=== PATIENT | male | born 1945 | race Two or more races ===

== ENCOUNTER 2024-04-19 15:21 | Inpatient (IN) | payer MEDICARE, OTHER ==
[~2024-04-19] VITALS: Ht 175.3 cm; Wt 60.4 kg
[2024-04-19] MEDS: IV NORMAL SALINE 1000 ML BAG IV ONE (15:43)
[2024-04-19] MEDS ORDERED: CEFTRIAXONE /D5W 50ML IVPB **ER PYXIS IV ONE (15:45)
[2024-04-19 15:48] LABS: BASOPHILS # (AUTO) 0.1 K/UL (0.0-0.2); BASOPHILS % (AUTO) 0.4 % (0.0-2.0); HEMATOCRIT 24.7 % (36.7-47.1); LYMPHOCYTES # (AUTO) 0.6 K/uL (0.8-4.8); LYMPHOCYTES % (AUTO) 2.5 % (20.5-51.5); MEAN CORPUSCULAR HEMOGLOBIN 35.9 uug (23.8-33.4); MEAN CORPUSCULAR HGB CONC 33 g/dL (32.5-36.3); MEAN CORPUSCULAR VOLUME 110.2 fL (73.0-96.2); MONOCYTES # (AUTO) 1.1 K/uL (0.1-1.30); MONOCYTES % (AUTO) 4.4 % (0.0-11.0); NEUTROPHILS # (AUTO) 23.7 K/uL (1.8-8.9); NEUTROPHILS % (AUTO) 92.7 % (38.5-71.5); PLATELET COUNT (AUTO) 733 K/uL (152-348); RED CELL DISTRIBUTION WIDTH 15.9 % (12.1-16.2); WHITE BLOOD COUNT (AUTO) 25.6 K/uL (3.6-10.2)
[2024-04-19 15:52] LABS: DIFFERENTIAL COMMENT 1; RED BLOOD CELL COUNT(AUTO) 2.24 MIL/uL (4.06-5.63)
[2024-04-19] MEDS: CEFTRIAXONE 1 G in IV DEXTROSE 5% 50 ML IV ONE (16:04)
[2024-04-19 16:10] LABS: ALANINE AMINOTRANSFERASE 21 U/L (16-63); ALKALINE PHOSPHATASE 89 U/L (50-136); ASPARTATE AMINOTRANSFERASE 17 U/L (15-37); BILIRUBIN,DIRECT 0.2 mg/dL (0.0-0.2); BILIRUBIN,TOTAL 0.5 mg/dL (0.2-1.0); CALCIUM 8.7 mg/dL (8.5-10.1); CARBON DIOXIDE 34 mmol/L (21-32); CHLORIDE 110 mmol/L (98-107); CREATININE 1.2 mg/dL (0.6-1.3); NT-PRO BNP 1484 pg/mL (0-125); POTASSIUM 3.5 mmol/L (3.5-5.1); SODIUM SERUM 155 mmol/L (136-145); TOTAL PROTEIN, SERUM 6.9 g/dL (6.4-8.2); UREA NITROGEN, BLOOD 49 mg/dL (7-18)
[2024-04-19] MEDS ORDERED: AMLO-212 GT (16:11)
[2024-04-19 16:12] LABS: GLUCOSE 447 mg/dL (74-106)
[2024-04-19 16:13] LABS: LACTIC ACID 4.3 mmol/L (0.4-2.0)
[2024-04-19] MEDS ORDERED: GABA250S2 GT (16:18)
[2024-04-19] MEDS ORDERED: [UNRECOGNIZED DRUG - CODE] GT (16:18)
[2024-04-19] MEDS ORDERED: ACET160E36 GT (16:18)
[2024-04-19] MEDS ORDERED: ACET160S2 GT (16:21)
[2024-04-19] MEDS ORDERED: BISA10SU95 RC (16:21)
[2024-04-19] MEDS ORDERED: CRAN425C5 GT (16:21)
[2024-04-19] MEDS ORDERED: DOCU50LI GT (16:24)
[2024-04-19] MEDS ORDERED: FERR300L GT (16:24)
[2024-04-19] MEDS ORDERED: FERR325T24 GT (16:24)
[2024-04-19] MEDS ORDERED: GLUC1VIA15 IM (16:27)
[2024-04-19] MEDS ORDERED: FOLI1TAB94 GT (16:27)
[2024-04-19] MEDS ORDERED: OMEG1600 GT (16:27)
[2024-04-19] MEDS ORDERED: HYDR-894 GT (16:29)
[2024-04-19] MEDS ORDERED: HYDR500C GT ×2 (16:29)
[2024-04-19] MEDS ORDERED: IPRA3AMP23 NEB (16:32)
[2024-04-19] MEDS ORDERED: INSU100I19 SUBCUT (16:32)
[2024-04-19] MEDS ORDERED: LEVE100S GT (16:32)
[2024-04-19] MEDS ORDERED: MULT-619 GT (16:35)
[2024-04-19] MEDS ORDERED: METO25TA6 GT (16:35)
[2024-04-19] MEDS ORDERED: AMIN30LI45 GT (16:35)
[2024-04-19] MEDS ORDERED: ACET-2154 GT (16:39)
[2024-04-19] MEDS ORDERED: INSU100C4 SUBCUT (16:39)
[2024-04-19] MEDS ORDERED: POLY17PO4 GT (16:39)
[2024-04-19] MEDS ORDERED: ZINC50TA2 GT (16:40)
[2024-04-19] MEDS ORDERED: CHOL100062 GT (16:40)
[2024-04-19] MEDS ORDERED: ASCO500P18 GT (16:40)
[2024-04-19 17:08] LABS: *BILIRUBIN,URIN NEGATIVE (NEGATIVE); *BLOOD, URINE 2+ (NEGATIVE); *CLARITY,URINE CLEAR (CLEAR); *COLOR,URINE YELLOW (YELLOW); *KETONES,URINE 1+ (NEGATIVE); *PROTEIN,URINE 2+ (NEGATIVE); LEUKOCYTE ESTERASE ,URINE NEGATIVE (NEGATIVE); NITRITE, URINE NEGATIVE (NEGATIVE); PH,URINE 5.5 (5.0-8.0); UGLUCOSE 2+ (NEGATIVE)
[2024-04-19] MEDS: IV D5W 1000ML 1,000 ML IV ONE (17:19)
[2024-04-19] MEDS ORDERED: INSULIN REGULAR, HUMAN 1000 UNIT/10 ML VIAL ONE (17:37)
[2024-04-19] MEDS: INSULIN REGULAR, HUMAN 1000 UNIT/10 ML VIAL SQ ONE ×2 (17:40→20:54)
[2024-04-19 18:07] LABS: BACTERIA,URINE FEW /HPF (NONE SEEN); RBC,URINE 20-50 /HPF (0-3); SQUAMOUS EPITHELIAL CELL,UR FEW /HPF (NONE SEEN); WBC,URINE 0-3 /HPF (0-3)
[2024-04-19] MEDS ORDERED: ONDANSETRON 4 MG/2 ML VIAL IV PRN (18:15)
[2024-04-19] MEDS ORDERED: DEXTROSE 50% 50 ML DISP.SYRIN IV PRN (18:15)
[2024-04-19] MEDS ORDERED: HYDROXYUREA 500 MG CAPSULE GT SCH ×2 (18:15)
[2024-04-19] MEDS ORDERED: MAGNESIUM HYDROXIDE 30 ML LIQUID UDC PO PRN (18:15)
[2024-04-19] MEDS ORDERED: IV NS 1000 ML 1,000 ML IV PRN (18:15)
[2024-04-19] MEDS: SODIUM CHLORIDE IV ONE (20:30)
[2024-04-19] MEDS ORDERED: FISH OIL GT SCH (21:00)
[2024-04-19] MEDS ORDERED: DHA GT SCH (21:00)
[2024-04-19] MEDS ORDERED: EPA GT SCH (21:00)
[2024-04-19] MEDS ORDERED: OMEGA GT SCH (21:00)
[2024-04-19 21:20] VITALS: BP 114/58; TEMP 97.8; O2SAT 94
[2024-04-19] MEDS: IV 1/2NS 1000 ML 1,000 ML IV PRN (21:46)
[2024-04-19] MEDS ORDERED: VANCOMYCIN IV 200 ML ONE (22:03)
[2024-04-19] MEDS ORDERED: CEFEPIME HCL 1 G VIAL ONE (22:04)
[2024-04-19] MEDS ORDERED: INSULIN GLARGINE,HUM 300 UNITS/3 ML CARTRIDGE SQ ONE (22:05)
[2024-04-19] MEDS: INSULIN GLARGINE,HUM 300 UNITS/3 ML CARTRIDGE SQ SCH (22:15)
[2024-04-19] MEDS: DEXTROSE 5% IV SCH (22:20)
[2024-04-19] MEDS: VANCOMYCIN IV 1,000 MG in IV DEXTROSE 5% 250 ML IV ONE (22:20)
[2024-04-19] MEDS: CEFEPIME HCL IV SCH (22:20)
[2024-04-19] MEDS: METOPROLOL TARTRATE 25 MG TABLET GT SCH (22:45)
[2024-04-19] MEDS: GLUCERNA 1.2 1000ML LIQUID GT PRN (22:50)
[2024-04-20] VITALS (11 sets, daily range): BP systolic 94–118; BP diastolic 49–69; TEMP 97.5–98; O2SAT 91–99
[2024-04-20] MEDS: BLOOD SUGAR DIAGNOSTIC 1 EACH STRIP VI SCH (00:24)
[2024-04-20] MEDS: FREE WATER VIA TUBE FEEDING GT SCH (00:24)
[2024-04-20] MEDS: INSULIN REGULAR, HUMAN 1000 UNIT/10 ML VIAL SQ PRN (00:59)
[2024-04-20 02:03] LABS: ABG BASE EXCESS 5.7 mmol/L (-2.0-3.0); ABG HCO3 29.9 mmol/L (21.0-28.0); ABG PO2 59.8 mmHg (83.0-108.0); ABG SITE RIGHT RADIAL; ABG TOTAL HEMOGLOBIN 9.2 G/dL (13.5-17.5); AaDO2 92.3 mmHg; COHb 0.3 % (0.5-1.5); MetHb 0.3 % (0.0-1.5); O2Hb 90.2 % (94.0-98.0)
[2024-04-20 06:56] LABS: BASOPHILS # (AUTO) 0.2 K/UL (0.0-0.2); BASOPHILS % (AUTO) 0.5 % (0.0-2.0); DIFFERENTIAL COMMENT 0; EOSINOPHILS # (AUTO) 0.1 K/uL (0.0-0.7); EOSINOPHILS % (AUTO) 0.2 % (0.0-7.0); HEMATOCRIT 27.4 % (36.7-47.1); HEMOGLOBIN 9.3 g/dL (12.5-16.3); LYMPHOCYTES # (AUTO) 1.2 K/uL (0.8-4.8); LYMPHOCYTES % (AUTO) 3.9 % (20.5-51.5); MEAN CORPUSCULAR HEMOGLOBIN 36.8 uug (23.8-33.4); MEAN CORPUSCULAR HGB CONC 34 g/dL (32.5-36.3); MEAN CORPUSCULAR VOLUME 108.8 fL (73.0-96.2); MONOCYTES % (AUTO) 3.3 % (0.0-11.0); NEUTROPHILS # (AUTO) 28.5 K/uL (1.8-8.9); NEUTROPHILS % (AUTO) 92.1 % (38.5-71.5); PLATELET COUNT (AUTO) 793 K/uL (152-348); RED BLOOD CELL COUNT(AUTO) 2.52 MIL/uL (4.06-5.63); RED CELL DISTRIBUTION WIDTH 15.7 % (12.1-16.2)
[2024-04-20 07:25] LABS: WHITE BLOOD COUNT (AUTO) 30.9 K/uL (3.6-10.2)
[2024-04-20 07:41] LABS: ALANINE AMINOTRANSFERASE 22 U/L (16-63); ALBUMIN 1.9 g/dL (3.4-5.0); ALKALINE PHOSPHATASE 93 U/L (50-136); ASPARTATE AMINOTRANSFERASE 26 U/L (15-37); BILIRUBIN,TOTAL 0.4 mg/dL (0.2-1.0); CALCIUM 8.4 mg/dL (8.5-10.1); CARBON DIOXIDE 31 mmol/L (21-32); CHLORIDE 113 mmol/L (98-107); CREATININE 0.8 mg/dL (0.6-1.3); GLUCOSE 195 mg/dL (74-106); MAGNESIUM 2.2 mg/dL (1.8-2.4); PHOSPHOROUS 1.8 mg/dL (2.5-4.9); SODIUM SERUM 154 mmol/L (136-145); TOTAL PROTEIN, SERUM 6.9 g/dL (6.4-8.2); UREA NITROGEN, BLOOD 35 mg/dL (7-18)
[2024-04-20] MEDS ORDERED: CRANBERRY EXTRACT GT SCH (09:00)
[2024-04-20] MEDS ORDERED: ASCORBIC ACID GT SCH (09:00)
[2024-04-20 09:02] LABS: ANISOCYTOSIS 1+; LYMPHOCYTES % (MANUAL) 2 % (20-40); MONOCYTES % (MANUAL) 3 % (2-10); NEUTROPHILS % (MANUAL) 95 % (42-75); PLATELET ESTIMATE INCREASED
[2024-04-20] MEDS: levETIRAcetam 500 MG/5 ML LIQUID UDC GT SCH (09:16)
[2024-04-20] MEDS: DOCUSATE SODIUM 100 MG/10 ML LIQUID UDC GT SCH (09:16)
[2024-04-20] MEDS: ZINC SULFATE 220 MG CAPSULE GT SCH (09:17)
[2024-04-20] MEDS: MULTIVITAMINS,THERAPEUTIC TABLET GT SCH (09:17)
[2024-04-20] MEDS: ASCORBIC ACID 500 MG TABLET GT SCH (09:17)
[2024-04-20] MEDS: CHOLECALCIFEROL 1,000 UNIT TABLET GT SCH (09:17)
[2024-04-20] MEDS: FOLIC ACID 1 MG TABLET GT SCH (09:17)
[2024-04-20] MEDS: GABAPENTIN 100 MG CAPSULE GT SCH (09:17)
[2024-04-20] MEDS: AMLODIPINE 5 MG TABLET GT SCH (09:18)
[2024-04-20] MEDS: POTASSIUM CHLORIDE 20 MEQ POWDER PACKET GT ONE ×2 (09:55→17:26)
[2024-04-20] MEDS: CEFEPIME HCL 2 GM in IV DEXTROSE 5% 100 ML IV SCH (09:59)
[2024-04-20] MEDS: IPRATROPIUM BROMIDE 0.5 MG/2.5 ML NEBU NEB SCH (14:10)
[2024-04-20] MEDS: ALBUTEROL SULFATE 2.5 MG/3 ML NEBU NEB SCH (14:10)
[2024-04-20] MEDS: MEDIHONEY= THERAHONEY 1.5 OZ TUBE TOP SCH (16:10)
[2024-04-20] MEDS: NEUTRA PHOS PACKET PO ONE (16:10)
[2024-04-20] MEDS: ARGININE/GLUTAMINE/CALCIUM BMB 1 EACH POWD.PACK GT SCH (16:17)
[2024-04-20] MEDS: POTASSIUM CHLORIDE 20 MEQ in IV 1/2NS 1000 ML 1,000 ML IV PRN (16:19)
[2024-04-20] MEDS: VANCOMYCIN HCL 750 MG in IV DEXTROSE 5% 250 ML IV SCH (17:26)
[2024-04-20] MEDS: OMEGA-3 FATTY ACIDS/FISH OIL CAPSULE GT SCH (20:24)
[2024-04-20] MEDS: GLUCERNA 1.2 1000ML LIQUID GT PRN (22:30)
[2024-04-21] VITALS (9 sets, daily range): BP systolic 110–134; BP diastolic 57–69; TEMP 97.6–98; O2SAT 95–99
[2024-04-21 07:41] LABS: BASOPHILS # (AUTO) 0.1 K/UL (0.0-0.2); BASOPHILS % (AUTO) 0.7 % (0.0-2.0); EOSINOPHILS # (AUTO) 0.3 K/uL (0.0-0.7); EOSINOPHILS % (AUTO) 1.7 % (0.0-7.0); HEMATOCRIT 24.5 % (36.7-47.1); HEMOGLOBIN 8.4 g/dL (12.5-16.3); LYMPHOCYTES # (AUTO) 1.4 K/uL (0.8-4.8); LYMPHOCYTES % (AUTO) 6.6 % (20.5-51.5); MEAN CORPUSCULAR HEMOGLOBIN 36.6 uug (23.8-33.4); MEAN CORPUSCULAR HGB CONC 34 g/dL (32.5-36.3); MEAN CORPUSCULAR VOLUME 106.5 fL (73.0-96.2); MONOCYTES # (AUTO) 0.7 K/uL (0.1-1.30); MONOCYTES % (AUTO) 3.3 % (0.0-11.0); NEUTROPHILS # (AUTO) 18.2 K/uL (1.8-8.9); NEUTROPHILS % (AUTO) 87.7 % (38.5-71.5); PLATELET COUNT (AUTO) 702 K/uL (152-348); RED CELL DISTRIBUTION WIDTH 16.1 % (12.1-16.2); WHITE BLOOD COUNT (AUTO) 20.7 K/uL (3.6-10.2)
[2024-04-21 08:02] LABS: CALCIUM 7.7 mg/dL (8.5-10.1); CARBON DIOXIDE 30 mmol/L (21-32); CHLORIDE 107 mmol/L (98-107); CREATININE 0.7 mg/dL (0.6-1.3); GLUCOSE 237 mg/dL (74-106); PHOSPHOROUS 1.8 mg/dL (2.5-4.9); POTASSIUM 3.7 mmol/L (3.5-5.1); SODIUM SERUM 144 mmol/L (136-145); UREA NITROGEN, BLOOD 26 mg/dL (7-18)
[2024-04-21] MEDS: HYDROXYUREA 500 MG CAPSULE GT SCH (08:27)
[2024-04-21 08:31] LABS: DIFFERENTIAL COMMENT 1
[2024-04-21 08:51] LABS: LACTIC ACID 2.5 mmol/L (0.4-2.0)
[2024-04-21 15:11] LABS: HIV-1 p24 ANTIGEN NON REACTIVE (NONREACTIVE); HIV-1/2 ANTIBODY NON REACTIVE (NONREACTIVE)
[2024-04-21] MEDS: NEUTRA PHOS PACKET GT ONE (18:35)
[2024-04-21] MEDS: SODIUM HYPOCHLORITE 0.125% (QUARTER STRENGTH) 473 ML BOTTLE TP SCH (21:45)
[2024-04-21] MEDS: MUPIROCIN 2% OINT 22 GM TUBE NS SCH (21:46)
[2024-04-22] VITALS (13 sets, daily range): BP systolic 100–131; BP diastolic 45–64; TEMP 98–98.8; O2SAT 94–99
[2024-04-22] MEDS: IV NS 1000 ML 1,000 ML IV PRN (02:05)
[2024-04-22 07:09] LABS: BASOPHILS # (AUTO) 0.1 K/UL (0.0-0.2); BASOPHILS % (AUTO) 0.5 % (0.0-2.0); EOSINOPHILS # (AUTO) 0.3 K/uL (0.0-0.7); EOSINOPHILS % (AUTO) 1.6 % (0.0-7.0); HEMATOCRIT 24.6 % (36.7-47.1); HEMOGLOBIN 8.4 g/dL (12.5-16.3); LYMPHOCYTES # (AUTO) 1.2 K/uL (0.8-4.8); LYMPHOCYTES % (AUTO) 6.7 % (20.5-51.5); MEAN CORPUSCULAR HEMOGLOBIN 36.2 uug (23.8-33.4); MEAN CORPUSCULAR HGB CONC 34 g/dL (32.5-36.3); MEAN CORPUSCULAR VOLUME 106.1 fL (73.0-96.2); MONOCYTES # (AUTO) 0.9 K/uL (0.1-1.30); MONOCYTES % (AUTO) 4.9 % (0.0-11.0); NEUTROPHILS # (AUTO) 15.4 K/uL (1.8-8.9); NEUTROPHILS % (AUTO) 86.3 % (38.5-71.5); PLATELET COUNT (AUTO) 714 K/uL (152-348); RED CELL DISTRIBUTION WIDTH 15.9 % (12.1-16.2); WHITE BLOOD COUNT (AUTO) 17.9 K/uL (3.6-10.2)
[2024-04-22 07:18] LABS: DIFFERENTIAL COMMENT 1; RED BLOOD CELL COUNT(AUTO) 2.32 MIL/uL (4.06-5.63)
[2024-04-22 07:22] LABS: CALCIUM 7.6 mg/dL (8.5-10.1); CARBON DIOXIDE 29 mmol/L (21-32); CHLORIDE 104 mmol/L (98-107); CREATININE 0.6 mg/dL (0.6-1.3); GLUCOSE 202 mg/dL (74-106); PHOSPHOROUS 2.7 mg/dL (2.5-4.9); POTASSIUM 3.1 mmol/L (3.5-5.1); SODIUM SERUM 141 mmol/L (136-145); UREA NITROGEN, BLOOD 18 mg/dL (7-18)
[2024-04-22 10:08] LABS: HEPATITIS B CORE AB, TOTAL Negative (Negative); HEPATITIS B SURFACE AG Negative (Negative); HEPATITIS C VIRUS ANTIBODY Non Reactive (Non Reactive)
[2024-04-22] MEDS: HYDROXYUREA 500 MG CAPSULE GT SCH (10:13)
[2024-04-22] MEDS: POTASSIUM CHLORIDE 20 MEQ POWDER PACKET GT ONE (10:17)
[2024-04-22] MEDS: VANCOMYCIN IV 1,000 MG in IV DEXTROSE 5% 250 ML IV SCH (22:39)
[2024-04-23] VITALS (9 sets, daily range): BP systolic 115–147; BP diastolic 58–67; TEMP 98–99.8; O2SAT 94–99
[2024-04-23 07:32] LABS: BASOPHILS # (AUTO) 0.1 K/UL (0.0-0.2); BASOPHILS % (AUTO) 0.3 % (0.0-2.0); EOSINOPHILS # (AUTO) 0.1 K/uL (0.0-0.7); EOSINOPHILS % (AUTO) 0.7 % (0.0-7.0); HEMATOCRIT 25.1 % (36.7-47.1); HEMOGLOBIN 8.6 g/dL (12.5-16.3); LYMPHOCYTES # (AUTO) 1.2 K/uL (0.8-4.8); LYMPHOCYTES % (AUTO) 5.6 % (20.5-51.5); MEAN CORPUSCULAR HEMOGLOBIN 36.3 uug (23.8-33.4); MEAN CORPUSCULAR HGB CONC 34 g/dL (32.5-36.3); MEAN CORPUSCULAR VOLUME 106.4 fL (73.0-96.2); MONOCYTES # (AUTO) 1.6 K/uL (0.1-1.30); MONOCYTES % (AUTO) 7.1 % (0.0-11.0); NEUTROPHILS # (AUTO) 19.3 K/uL (1.8-8.9); NEUTROPHILS % (AUTO) 86.3 % (38.5-71.5); PLATELET COUNT (AUTO) 676 K/uL (152-348); WHITE BLOOD COUNT (AUTO) 22.4 K/uL (3.6-10.2)
[2024-04-23 07:43] LABS: DIFFERENTIAL COMMENT 1; RED BLOOD CELL COUNT(AUTO) 2.36 MIL/uL (4.06-5.63)
[2024-04-23 07:45] LABS: CALCIUM 7.8 mg/dL (8.5-10.1); CARBON DIOXIDE 30 mmol/L (21-32); CHLORIDE 104 mmol/L (98-107); CREATININE 0.6 mg/dL (0.6-1.3); GLUCOSE 150 mg/dL (74-106); SODIUM SERUM 140 mmol/L (136-145); UREA NITROGEN, BLOOD 12 mg/dL (7-18)
[2024-04-23] MEDS ORDERED: POTASSIUM CHLORIDE 20 MEQ POWDER PACKET PO SCH (09:00)
[2024-04-23] MEDS ORDERED: MAGNESIUM HYDROXIDE 30 ML LIQUID UDC GT PRN (09:09)
[2024-04-23] MEDS: POTASSIUM CHLORIDE 20 MEQ POWDER PACKET GT SCH (09:44)
[2024-04-23 12:07] LABS: ANISOCYTOSIS 1+; BASOPHILS % (MANUAL) 0 % (0-2); EOSINOPHILS % (MANUAL) 0 % (0-8); LYMPHOCYTES % (MANUAL) 7 % (20-40); MONOCYTES % (MANUAL) 8 % (2-10); NEUTROPHILS % (MANUAL) 85 % (42-75); PLATELET ESTIMATE INCREASED
[2024-04-24] VITALS (11 sets, daily range): BP systolic 117–137; BP diastolic 46–67; TEMP 96.4–98.8; O2SAT 94–100
[2024-04-24 07:09] LABS: BASOPHILS # (AUTO) 0.1 K/UL (0.0-0.2); BASOPHILS % (AUTO) 0.6 % (0.0-2.0); EOSINOPHILS # (AUTO) 0.2 K/uL (0.0-0.7); EOSINOPHILS % (AUTO) 1.1 % (0.0-7.0); HEMATOCRIT 22.8 % (36.7-47.1); HEMOGLOBIN 7.8 g/dL (12.5-16.3); LYMPHOCYTES # (AUTO) 1.5 K/uL (0.8-4.8); MEAN CORPUSCULAR HEMOGLOBIN 36.6 uug (23.8-33.4); MEAN CORPUSCULAR HGB CONC 34 g/dL (32.5-36.3); MONOCYTES # (AUTO) 1.4 K/uL (0.1-1.30); MONOCYTES % (AUTO) 7.5 % (0.0-11.0); NEUTROPHILS # (AUTO) 15.8 K/uL (1.8-8.9); NEUTROPHILS % (AUTO) 82.8 % (38.5-71.5); PLATELET COUNT (AUTO) 707 K/uL (152-348); RED CELL DISTRIBUTION WIDTH 16.2 % (12.1-16.2); WHITE BLOOD COUNT (AUTO) 19.1 K/uL (3.6-10.2)
[2024-04-24 07:12] LABS: DIFFERENTIAL COMMENT 1; RED BLOOD CELL COUNT(AUTO) 2.13 MIL/uL (4.06-5.63)
[2024-04-24 07:19] LABS: CALCIUM 7.6 mg/dL (8.5-10.1); CARBON DIOXIDE 30 mmol/L (21-32); CHLORIDE 106 mmol/L (98-107); CREATININE 0.6 mg/dL (0.6-1.3); GLUCOSE 154 mg/dL (74-106); POTASSIUM 3.1 mmol/L (3.5-5.1); SODIUM SERUM 143 mmol/L (136-145); UREA NITROGEN, BLOOD 13 mg/dL (7-18)
[2024-04-24] MEDS: POTASSIUM CHLORIDE 20 MEQ POWDER PACKET GT ONE (10:09)
[2024-04-25] VITALS (10 sets, daily range): BP systolic 111–147; BP diastolic 41–83; TEMP 97.6–98.7; O2SAT 92–99
[2024-04-25 04:31] LABS: BASOPHILS # (AUTO) 0.1 K/UL (0.0-0.2); BASOPHILS % (AUTO) 0.7 % (0.0-2.0); EOSINOPHILS # (AUTO) 0.2 K/uL (0.0-0.7); EOSINOPHILS % (AUTO) 1.3 % (0.0-7.0); HEMATOCRIT 23.4 % (36.7-47.1); HEMOGLOBIN 8.1 g/dL (12.5-16.3); LYMPHOCYTES # (AUTO) 1.4 K/uL (0.8-4.8); LYMPHOCYTES % (AUTO) 7.8 % (20.5-51.5); MEAN CORPUSCULAR HGB CONC 35 g/dL (32.5-36.3); MEAN CORPUSCULAR VOLUME 104.5 fL (73.0-96.2); MONOCYTES # (AUTO) 1.4 K/uL (0.1-1.30); MONOCYTES % (AUTO) 7.9 % (0.0-11.0); NEUTROPHILS # (AUTO) 14.7 K/uL (1.8-8.9); NEUTROPHILS % (AUTO) 82.3 % (38.5-71.5); PLATELET COUNT (AUTO) 832 K/uL (152-348); RED CELL DISTRIBUTION WIDTH 16.4 % (12.1-16.2); WHITE BLOOD COUNT (AUTO) 17.9 K/uL (3.6-10.2)
[2024-04-25 04:46] LABS: DIFFERENTIAL COMMENT 1; RED BLOOD CELL COUNT(AUTO) 2.24 MIL/uL (4.06-5.63)
[2024-04-25 04:50] LABS: CALCIUM 7.6 mg/dL (8.5-10.1); CARBON DIOXIDE 29 mmol/L (21-32); CHLORIDE 103 mmol/L (98-107); CREATININE 0.7 mg/dL (0.6-1.3); GLUCOSE 234 mg/dL (74-106); POTASSIUM 4.1 mmol/L (3.5-5.1); SODIUM SERUM 140 mmol/L (136-145); UREA NITROGEN, BLOOD 13 mg/dL (7-18)
[2024-04-26] VITALS (10 sets, daily range): BP systolic 120–166; BP diastolic 51–72; TEMP 97.6–98.6; O2SAT 92–98
[2024-04-26 07:31] LABS: BASOPHILS # (AUTO) 0.1 K/UL (0.0-0.2); BASOPHILS % (AUTO) 0.9 % (0.0-2.0); EOSINOPHILS # (AUTO) 0.2 K/uL (0.0-0.7); EOSINOPHILS % (AUTO) 1.4 % (0.0-7.0); HEMATOCRIT 22.8 % (36.7-47.1); LYMPHOCYTES # (AUTO) 1.2 K/uL (0.8-4.8); LYMPHOCYTES % (AUTO) 8.5 % (20.5-51.5); MEAN CORPUSCULAR HEMOGLOBIN 36.6 uug (23.8-33.4); MEAN CORPUSCULAR HGB CONC 35 g/dL (32.5-36.3); MEAN CORPUSCULAR VOLUME 104.2 fL (73.0-96.2); MONOCYTES # (AUTO) 1.3 K/uL (0.1-1.30); NEUTROPHILS # (AUTO) 11.7 K/uL (1.8-8.9); NEUTROPHILS % (AUTO) 80.2 % (38.5-71.5); PLATELET COUNT (AUTO) 868 K/uL (152-348); RED CELL DISTRIBUTION WIDTH 16.2 % (12.1-16.2); WHITE BLOOD COUNT (AUTO) 14.6 K/uL (3.6-10.2)
[2024-04-26 07:44] LABS: CARBON DIOXIDE 33 mmol/L (21-32); CHLORIDE 103 mmol/L (98-107); CREATININE 0.7 mg/dL (0.6-1.3); DIFFERENTIAL COMMENT 1; GLUCOSE 212 mg/dL (74-106); POTASSIUM 3.6 mmol/L (3.5-5.1); RED BLOOD CELL COUNT(AUTO) 2.19 MIL/uL (4.06-5.63); SODIUM SERUM 140 mmol/L (136-145); UREA NITROGEN, BLOOD 12 mg/dL (7-18)
[2024-04-26 10:15] LABS: EOSINOPHILS % (MANUAL) 1 % (0-8); LYMPHOCYTES % (MANUAL) 4 % (20-40); MONOCYTES % (MANUAL) 4 % (2-10); MYELOCYTES % 3 % (0-0); NEUTROPHILS % (MANUAL) 88 % (42-75); PLATELET ESTIMATE INCREASED
[2024-04-26 10:16] LABS: ANISOCYTOSIS 1+
[2024-04-27] VITALS (10 sets, daily range): BP systolic 97–121; BP diastolic 55–60; TEMP 97.6–98.6; O2SAT 94–99
[2024-04-27 08:02] LABS: BASOPHILS # (AUTO) 0.1 K/UL (0.0-0.2); BASOPHILS % (AUTO) 0.5 % (0.0-2.0); EOSINOPHILS # (AUTO) 0.2 K/uL (0.0-0.7); HEMOGLOBIN 7.8 g/dL (12.5-16.3); MONOCYTES # (AUTO) 1.2 K/uL (0.1-1.30)
[2024-04-27 08:04] LABS: EOSINOPHILS % (AUTO) 1.2 % (0.0-7.0); HEMATOCRIT 22.9 % (36.7-47.1); LYMPHOCYTES # (AUTO) 1.4 K/uL (0.8-4.8); LYMPHOCYTES % (AUTO) 7.5 % (20.5-51.5); MEAN CORPUSCULAR HEMOGLOBIN 35.4 uug (23.8-33.4); MEAN CORPUSCULAR HGB CONC 34 g/dL (32.5-36.3); MEAN CORPUSCULAR VOLUME 104.5 fL (73.0-96.2); MONOCYTES % (AUTO) 6.4 % (0.0-11.0); NEUTROPHILS # (AUTO) 15.3 K/uL (1.8-8.9); NEUTROPHILS % (AUTO) 84.4 % (38.5-71.5); PLATELET COUNT (AUTO) 981 K/uL (152-348); RED CELL DISTRIBUTION WIDTH 16.3 % (12.1-16.2); WHITE BLOOD COUNT (AUTO) 18.2 K/uL (3.6-10.2)
[2024-04-27 08:16] LABS: CALCIUM 8.2 mg/dL (8.5-10.1); CARBON DIOXIDE 35 mmol/L (21-32); CHLORIDE 102 mmol/L (98-107); CREATININE 0.7 mg/dL (0.6-1.3); GLUCOSE 171 mg/dL (74-106); POTASSIUM 3.6 mmol/L (3.5-5.1); SODIUM SERUM 140 mmol/L (136-145); UREA NITROGEN, BLOOD 12 mg/dL (7-18)
[2024-04-27 08:24] LABS: DIFFERENTIAL COMMENT 1; RED BLOOD CELL COUNT(AUTO) 2.19 MIL/uL (4.06-5.63)
[2024-04-27 09:16] LABS: MAGNESIUM 2.1 mg/dL (1.8-2.4); PHOSPHOROUS 3.4 mg/dL (2.5-4.9)
[2024-04-27 10:33] LABS: EOSINOPHILS % (MANUAL) 1 % (0-8); LYMPHOCYTES % (MANUAL) 7 % (20-40); MONOCYTES % (MANUAL) 7 % (2-10); NEUTROPHILS % (MANUAL) 85 % (42-75); PLATELET ESTIMATE INCREASED
[2024-04-28] VITALS (11 sets, daily range): BP systolic 113–122; BP diastolic 55–60; TEMP 97.4–100.3; O2SAT 94–99
[2024-04-28 06:54] LABS: BASOPHILS # (AUTO) 0.1 K/UL (0.0-0.2); BASOPHILS % (AUTO) 0.6 % (0.0-2.0); EOSINOPHILS # (AUTO) 0.2 K/uL (0.0-0.7); EOSINOPHILS % (AUTO) 0.9 % (0.0-7.0); HEMOGLOBIN 7.8 g/dL (12.5-16.3); LYMPHOCYTES # (AUTO) 1.6 K/uL (0.8-4.8); LYMPHOCYTES % (AUTO) 8.8 % (20.5-51.5); MEAN CORPUSCULAR HEMOGLOBIN 35.3 uug (23.8-33.4); MEAN CORPUSCULAR HGB CONC 34 g/dL (32.5-36.3); MEAN CORPUSCULAR VOLUME 104.2 fL (73.0-96.2); MONOCYTES # (AUTO) 0.9 K/uL (0.1-1.30); MONOCYTES % (AUTO) 4.9 % (0.0-11.0); NEUTROPHILS # (AUTO) 15.9 K/uL (1.8-8.9); NEUTROPHILS % (AUTO) 84.8 % (38.5-71.5); RED CELL DISTRIBUTION WIDTH 16.4 % (12.1-16.2); WHITE BLOOD COUNT (AUTO) 18.8 K/uL (3.6-10.2)
[2024-04-28 07:02] LABS: RED BLOOD CELL COUNT(AUTO) 2.21 MIL/uL (4.06-5.63)
[2024-04-28 07:05] LABS: DIFFERENTIAL COMMENT 1; PLATELET COUNT (AUTO) 1175 K/uL (152-348)
[2024-04-28 07:10] LABS: CALCIUM 8.5 mg/dL (8.5-10.1); CARBON DIOXIDE 37 mmol/L (21-32); CHLORIDE 101 mmol/L (98-107); CREATININE 0.6 mg/dL (0.6-1.3); GLUCOSE 226 mg/dL (74-106); POTASSIUM 4.1 mmol/L (3.5-5.1); SODIUM SERUM 142 mmol/L (136-145); UREA NITROGEN, BLOOD 13 mg/dL (7-18)
[2024-04-28 08:18] LABS: MAGNESIUM 2.2 mg/dL (1.8-2.4); PHOSPHOROUS 3.5 mg/dL (2.5-4.9)
[2024-04-28 15:28] LABS: LYMPHOCYTES % (MANUAL) 0 % (20-40); NEUTROPHILS % (MANUAL) 0 % (42-75)
[2024-04-29] VITALS (12 sets, daily range): BP systolic 101–132; BP diastolic 53–87; TEMP 98.3–98.6; O2SAT 95–100
[2024-04-29] MEDS: ALBUTEROL SULFATE 2.5 MG/3 ML NEBU NEB PRN (00:24)
[2024-04-29 07:43] LABS: BASOPHILS # (AUTO) 0.1 K/UL (0.0-0.2); BASOPHILS % (AUTO) 0.6 % (0.0-2.0); EOSINOPHILS # (AUTO) 0.2 K/uL (0.0-0.7); EOSINOPHILS % (AUTO) 1.1 % (0.0-7.0); HEMATOCRIT 22.8 % (36.7-47.1); HEMOGLOBIN 7.9 g/dL (12.5-16.3); LYMPHOCYTES # (AUTO) 1.5 K/uL (0.8-4.8); LYMPHOCYTES % (AUTO) 8.7 % (20.5-51.5); MEAN CORPUSCULAR HEMOGLOBIN 36.1 uug (23.8-33.4); MEAN CORPUSCULAR HGB CONC 35 g/dL (32.5-36.3); MEAN CORPUSCULAR VOLUME 104.3 fL (73.0-96.2); MONOCYTES # (AUTO) 0.7 K/uL (0.1-1.30); NEUTROPHILS # (AUTO) 15.1 K/uL (1.8-8.9); NEUTROPHILS % (AUTO) 85.6 % (38.5-71.5); RED CELL DISTRIBUTION WIDTH 16.4 % (12.1-16.2); WHITE BLOOD COUNT (AUTO) 17.7 K/uL (3.6-10.2)
[2024-04-29 07:53] LABS: CALCIUM 8.4 mg/dL (8.5-10.1); CARBON DIOXIDE 36 mmol/L (21-32); CHLORIDE 100 mmol/L (98-107); CREATININE 0.7 mg/dL (0.6-1.3); GLUCOSE 226 mg/dL (74-106); PHOSPHOROUS 3.4 mg/dL (2.5-4.9); POTASSIUM 3.9 mmol/L (3.5-5.1); SODIUM SERUM 140 mmol/L (136-145); UREA NITROGEN, BLOOD 21 mg/dL (7-18)
[2024-04-29 07:56] LABS: RED BLOOD CELL COUNT(AUTO) 2.19 MIL/uL (4.06-5.63)
[2024-04-29 07:57] LABS: DIFFERENTIAL COMMENT 1; PLATELET COUNT (AUTO) 1188 K/uL (152-348)
[2024-04-29 08:55] LABS: ANISOCYTOSIS 1+; EOSINOPHILS % (MANUAL) 1 % (0-8); LYMPHOCYTES % (MANUAL) 9 % (20-40); MONOCYTES % (MANUAL) 4 % (2-10); NEUTROPHILS % (MANUAL) 86 % (42-75); PLATELET ESTIMATE MARKED INCREASED
[2024-04-30] VITALS (13 sets, daily range): BP systolic 115–133; BP diastolic 55–97; TEMP 98–99.4; O2SAT 95–100
[2024-04-30 06:42] LABS: BASOPHILS # (AUTO) 0.1 K/UL (0.0-0.2); BASOPHILS % (AUTO) 0.6 % (0.0-2.0); EOSINOPHILS # (AUTO) 0.2 K/uL (0.0-0.7); EOSINOPHILS % (AUTO) 1.3 % (0.0-7.0); HEMATOCRIT 24.2 % (36.7-47.1); HEMOGLOBIN 8.4 g/dL (12.5-16.3); LYMPHOCYTES # (AUTO) 1.5 K/uL (0.8-4.8); MEAN CORPUSCULAR HEMOGLOBIN 36.1 uug (23.8-33.4); MEAN CORPUSCULAR HGB CONC 35 g/dL (32.5-36.3); MEAN CORPUSCULAR VOLUME 104.1 fL (73.0-96.2); MONOCYTES % (AUTO) 5.9 % (0.0-11.0); NEUTROPHILS # (AUTO) 13.9 K/uL (1.8-8.9); NEUTROPHILS % (AUTO) 83.2 % (38.5-71.5); RED CELL DISTRIBUTION WIDTH 16.3 % (12.1-16.2); WHITE BLOOD COUNT (AUTO) 16.7 K/uL (3.6-10.2)
[2024-04-30 06:47] LABS: RED BLOOD CELL COUNT(AUTO) 2.32 MIL/uL (4.06-5.63)
[2024-04-30 06:49] LABS: DIFFERENTIAL COMMENT 1; PLATELET COUNT (AUTO) 1137 K/uL (152-348)
[2024-04-30 07:26] LABS: CALCIUM 8.4 mg/dL (8.5-10.1); CARBON DIOXIDE 34 mmol/L (21-32); CHLORIDE 101 mmol/L (98-107); CREATININE 0.7 mg/dL (0.6-1.3); GLUCOSE 147 mg/dL (74-106); MAGNESIUM 2.2 mg/dL (1.8-2.4); PHOSPHOROUS 3.9 mg/dL (2.5-4.9); POTASSIUM 4.1 mmol/L (3.5-5.1); SODIUM SERUM 140 mmol/L (136-145); UREA NITROGEN, BLOOD 26 mg/dL (7-18)
[2024-04-30 09:40] LABS: EOSINOPHILS % (MANUAL) 2 % (0-8); LYMPHOCYTES % (MANUAL) 9 % (20-40); MONOCYTES % (MANUAL) 6 % (2-10); NEUTROPHILS % (MANUAL) 83 % (42-75); PLATELET ESTIMATE MARKED INCREASED
[2024-04-30 09:41] LABS: ANISOCYTOSIS 1+
[2024-05-01] VITALS (9 sets, daily range): BP systolic 118–128; BP diastolic 59–73; TEMP 97.7–98.6; O2SAT 93–99
[2024-05-01 07:51] LABS: BASOPHILS # (AUTO) 0.1 K/UL (0.0-0.2); BASOPHILS % (AUTO) 0.8 % (0.0-2.0); EOSINOPHILS # (AUTO) 0.1 K/uL (0.0-0.7); EOSINOPHILS % (AUTO) 1.2 % (0.0-7.0); HEMATOCRIT 22.4 % (36.7-47.1); HEMOGLOBIN 7.7 g/dL (12.5-16.3); LYMPHOCYTES # (AUTO) 1.4 K/uL (0.8-4.8); LYMPHOCYTES % (AUTO) 11.5 % (20.5-51.5); MEAN CORPUSCULAR HEMOGLOBIN 35.8 uug (23.8-33.4); MEAN CORPUSCULAR HGB CONC 34 g/dL (32.5-36.3); MONOCYTES # (AUTO) 0.8 K/uL (0.1-1.30); MONOCYTES % (AUTO) 6.3 % (0.0-11.0); NEUTROPHILS # (AUTO) 9.7 K/uL (1.8-8.9); NEUTROPHILS % (AUTO) 80.2 % (38.5-71.5); RED CELL DISTRIBUTION WIDTH 16.6 % (12.1-16.2); WHITE BLOOD COUNT (AUTO) 12.1 K/uL (3.6-10.2)
[2024-05-01 08:01] LABS: CALCIUM 8.1 mg/dL (8.5-10.1); CARBON DIOXIDE 36 mmol/L (21-32); CHLORIDE 98 mmol/L (98-107); CREATININE 0.7 mg/dL (0.6-1.3); GLUCOSE 206 mg/dL (74-106); MAGNESIUM 2.1 mg/dL (1.8-2.4); POTASSIUM 3.9 mmol/L (3.5-5.1); SODIUM SERUM 137 mmol/L (136-145); UREA NITROGEN, BLOOD 19 mg/dL (7-18)
[2024-05-01 08:03] LABS: RED BLOOD CELL COUNT(AUTO) 2.15 MIL/uL (4.06-5.63)
[2024-05-01 08:05] LABS: DIFFERENTIAL COMMENT 1; PLATELET COUNT (AUTO) 1114 K/uL (152-348)
[2024-05-01 10:19] LABS: EOSINOPHILS % (MANUAL) 1 % (0-8); LYMPHOCYTES % (MANUAL) 12 % (20-40); MONOCYTES % (MANUAL) 6 % (2-10); NEUTROPHILS % (MANUAL) 81 % (42-75); PLATELET ESTIMATE MARKED INCREASED
[2024-05-01 10:20] LABS: ANISOCYTOSIS 1+
[2024-05-02] VITALS (18 sets, daily range): BP systolic 101–148; BP diastolic 52–78; TEMP 97.7–98.7; O2SAT 96–99
[2024-05-02] MEDS: REMEDY ESSENTIAL ZINC PASTE 113 GM TP PRN (09:22)
[2024-05-02] MEDS: ACETAMINOPHEN 325 MG TABLET PO PRN (09:35)
[2024-05-02 11:49] LABS: BASOPHILS # (AUTO) 0.1 K/UL (0.0-0.2); EOSINOPHILS # (AUTO) 0.2 K/uL (0.0-0.7); EOSINOPHILS % (AUTO) 1.5 % (0.0-7.0); HEMATOCRIT 22.2 % (36.7-47.1); HEMOGLOBIN 7.5 g/dL (12.5-16.3); LYMPHOCYTES # (AUTO) 1.2 K/uL (0.8-4.8); LYMPHOCYTES % (AUTO) 11.2 % (20.5-51.5); MEAN CORPUSCULAR HEMOGLOBIN 34.7 uug (23.8-33.4); MEAN CORPUSCULAR HGB CONC 34 g/dL (32.5-36.3); MEAN CORPUSCULAR VOLUME 103.2 fL (73.0-96.2); MONOCYTES # (AUTO) 0.8 K/uL (0.1-1.30); MONOCYTES % (AUTO) 7.6 % (0.0-11.0); NEUTROPHILS # (AUTO) 8.8 K/uL (1.8-8.9); NEUTROPHILS % (AUTO) 78.7 % (38.5-71.5); RED CELL DISTRIBUTION WIDTH 16.4 % (12.1-16.2); WHITE BLOOD COUNT (AUTO) 11.1 K/uL (3.6-10.2)
[2024-05-02 12:25] LABS: DIFFERENTIAL COMMENT 1; PLATELET COUNT (AUTO) 1052 K/uL (152-348); RED BLOOD CELL COUNT(AUTO) 2.15 MIL/uL (4.06-5.63)
[2024-05-02] MEDS: ACETYLCYSTEINE 10% 4ML VIAL NEB SCH (13:27)
[2024-05-02] MEDS ORDERED: ALLOPURINOL 300 MG TABLET PO SCH (14:30)
[2024-05-02] MEDS ORDERED: ALLOPURINOL 300 MG TABLET GT SCH (14:40)
[2024-05-02] MEDS ORDERED: ACETAMINOPHEN 325 MG TABLET PO PRN (14:45)
[2024-05-02] MEDS: ALLOPURINOL 300 MG TABLET GT SCH (16:09)
[2024-05-02 17:46] LABS: THYROID STIMULATING HORMONE 29.524 mIU/mL (0.358-3.740)
[2024-05-02] MEDS: diphenhydrAMINE 50 MG/1 ML VIAL IV PRN (19:49)
[2024-05-02] MEDS ORDERED: HYDROXYUREA 500 MG CAPSULE GT SCH (22:00)
[2024-05-02] MEDS: HYDROXYUREA 500 MG CAPSULE GT SCH (23:07)
[2024-05-03] VITALS (12 sets, daily range): BP systolic 114–137; BP diastolic 51–73; TEMP 97.7–98.5; O2SAT 94–100
[2024-05-03 06:55] LABS: BASOPHILS # (AUTO) 0.1 K/UL (0.0-0.2); BASOPHILS % (AUTO) 0.9 % (0.0-2.0); EOSINOPHILS # (AUTO) 0.1 K/uL (0.0-0.7); EOSINOPHILS % (AUTO) 1.2 % (0.0-7.0); HEMATOCRIT 27.3 % (36.7-47.1); HEMOGLOBIN 9.5 g/dL (12.5-16.3); LYMPHOCYTES # (AUTO) 1.1 K/uL (0.8-4.8); LYMPHOCYTES % (AUTO) 9.6 % (20.5-51.5); MEAN CORPUSCULAR HEMOGLOBIN 34.4 uug (23.8-33.4); MEAN CORPUSCULAR HGB CONC 35 g/dL (32.5-36.3); MEAN CORPUSCULAR VOLUME 98.7 fL (73.0-96.2); MONOCYTES # (AUTO) 0.8 K/uL (0.1-1.30); MONOCYTES % (AUTO) 7.4 % (0.0-11.0); NEUTROPHILS % (AUTO) 80.9 % (38.5-71.5); RED BLOOD CELL COUNT(AUTO) 2.77 MIL/uL (4.06-5.63); RED CELL DISTRIBUTION WIDTH 18.2 % (12.1-16.2); WHITE BLOOD COUNT (AUTO) 11.1 K/uL (3.6-10.2)
[2024-05-03 07:00] LABS: ANISOCYTOSIS 1+
[2024-05-03 07:01] LABS: BASOPHILS % (MANUAL) 1 % (0-2); EOSINOPHILS % (MANUAL) 2 % (0-8); LYMPHOCYTES % (MANUAL) 11 % (20-40); MONOCYTES % (MANUAL) 8 % (2-10); NEUTROPHILS % (MANUAL) 79 % (42-75)
[2024-05-03 07:16] LABS: DIFFERENTIAL COMMENT 1; PLATELET COUNT (AUTO) 1163 K/uL (152-348)
[2024-05-03 07:24] LABS: CALCIUM 8.7 mg/dL (8.5-10.1); CARBON DIOXIDE 34 mmol/L (21-32); CHLORIDE 97 mmol/L (98-107); CREATININE 0.6 mg/dL (0.6-1.3); GLUCOSE 163 mg/dL (74-106); PHOSPHOROUS 4.1 mg/dL (2.5-4.9); POTASSIUM 4.3 mmol/L (3.5-5.1); SODIUM SERUM 137 mmol/L (136-145); UREA NITROGEN, BLOOD 15 mg/dL (7-18)
[2024-05-03 07:38] LABS: MAGNESIUM 2.2 mg/dL (1.8-2.4)
[2024-05-03 08:06] LABS: FREE KAPPA LT CHAINS SERUM 94.4 mg/L (3.3-19.4); FREE LAMBDA LT CHAIN SERUM 62.2 mg/L (5.7-26.3); KAPPA/LAMBDA RATIO SERUM 1.52 (0.26-1.65)
[2024-05-03] MEDS: ASPIRIN EC 81 MG TABLET.DR PO SCH (08:38)
[2024-05-03 09:08] LABS: *IMMUNOGLOBULIN G, SERUM 1551 mg/dL (603-1613); IMMUNOGLOBULIN A, SERUM 385 mg/dL (61-437); IMMUNOGLOBULIN M, SERUM 62 mg/dL (15-143)
[2024-05-03 10:06] LABS: LYMPHOCYTES % (MANUAL) 10 % (20-40); NEUTROPHILS % (MANUAL) 81 % (42-75)
[2024-05-03 10:07] LABS: ANISOCYTOSIS 2+; EOSINOPHILS % (MANUAL) 1 % (0-8); MONOCYTES % (MANUAL) 8 % (2-10); PLATELET ESTIMATE MARKED INCREASED
[2024-05-03] MEDS: HYDROXYUREA 500 MG CAPSULE PO ONE ×2 (11:00→16:25)
[2024-05-03 12:06] LABS: CARCINOEMBRYONIC AG (CEA) 2.7 ng/mL (0.0-4.7); FOLATE (FOLIC ACID), SERUM >20.0 ng/mL (>3.0)
[2024-05-03] MEDS: LIDOCAINE 2%-EPI 1:100,000 20 ML VIAL IJ ONE (13:30)
[2024-05-03 14:39] LABS: HEMATOCRIT 25.6 % (36.7-47.1)
[2024-05-03 15:18] LABS: URIC ACID 2.1 mg/dL (3.5-7.2)
[2024-05-03] MEDS: HYDROXYUREA 500 MG CAPSULE PO SCH (20:48)
[2024-05-04] VITALS (11 sets, daily range): BP systolic 113–129; BP diastolic 54–69; TEMP 97.8–98.5; O2SAT 96–100
[2024-05-04 06:34] LABS: BASOPHILS # (AUTO) 0.1 K/UL (0.0-0.2); EOSINOPHILS % (AUTO) 0.5 % (0.0-7.0); HEMOGLOBIN 9.2 g/dL (12.5-16.3); LYMPHOCYTES # (AUTO) 0.8 K/uL (0.8-4.8); LYMPHOCYTES % (AUTO) 8.5 % (20.5-51.5); MEAN CORPUSCULAR HGB CONC 36 g/dL (32.5-36.3); MEAN CORPUSCULAR VOLUME 98.5 fL (73.0-96.2); MONOCYTES # (AUTO) 0.4 K/uL (0.1-1.30); MONOCYTES % (AUTO) 4.1 % (0.0-11.0); NEUTROPHILS # (AUTO) 8.4 K/uL (1.8-8.9); NEUTROPHILS % (AUTO) 85.9 % (38.5-71.5); RED BLOOD CELL COUNT(AUTO) 2.64 MIL/uL (4.06-5.63); RED CELL DISTRIBUTION WIDTH 17.8 % (12.1-16.2); WHITE BLOOD COUNT (AUTO) 9.7 K/uL (3.6-10.2)
[2024-05-04 06:50] LABS: CALCIUM 8.3 mg/dL (8.5-10.1); CARBON DIOXIDE 35 mmol/L (21-32); CHLORIDE 95 mmol/L (98-107); CREATININE 0.6 mg/dL (0.6-1.3); GLUCOSE 187 mg/dL (74-106); MAGNESIUM 2.1 mg/dL (1.8-2.4); SODIUM SERUM 127 mmol/L (136-145); UREA NITROGEN, BLOOD 20 mg/dL (7-18)
[2024-05-04 07:11] LABS: A/G RATIO 0.6 (0.7-1.7); ALBUMIN 2.2 g/dL (2.9-4.4); ALPHA-1-GLOBULIN 0.4 g/dL (0.0-0.4); ALPHA-2-GLOBULIN 0.9 g/dL (0.4-1.0); GAMMA GLOBULIN 1.5 g/dL (0.4-1.8); GLOBULIN, TOTAL 3.8 g/dL (2.2-3.9); M-SPIKE Not Observed g/dL (Not Observed)
[2024-05-04 07:20] LABS: DIFFERENTIAL COMMENT 1; PLATELET COUNT (AUTO) 1176 K/uL (152-348)
[2024-05-04 12:15] LABS: HEMATOCRIT 27.6 % (36.7-47.1); HEMOGLOBIN 9.5 g/dL (12.5-16.3)
[2024-05-04] MEDS: HYDROXYUREA 500 MG CAPSULE PO ONE (12:46)
[2024-05-04 16:31] LABS: LYMPHOCYTES % (MANUAL) 0 % (20-40); NEUTROPHILS % (MANUAL) 0 % (42-75)
[2024-05-05] VITALS (9 sets, daily range): BP systolic 110; BP diastolic 57; TEMP 98.2; O2SAT 96–100
[2024-05-05] MEDS: HYDROXYUREA 500 MG CAPSULE PO SCH (00:18)
[2024-05-05] MEDS: IPRATROPIUM BROMIDE 0.5 MG/2.5 ML NEBU NEB PRN (02:33)
[2024-05-05] MEDS: LEVOTHYROXINE SODIUM 75 MCG TABLET GT SCH (06:45)
[2024-05-05 08:26] LABS: BASOPHILS # (AUTO) 0.1 K/UL (0.0-0.2); EOSINOPHILS # (AUTO) 0.1 K/uL (0.0-0.7); EOSINOPHILS % (AUTO) 0.8 % (0.0-7.0); HEMATOCRIT 28.9 % (36.7-47.1); HEMOGLOBIN 9.9 g/dL (12.5-16.3); LYMPHOCYTES # (AUTO) 1.6 K/uL (0.8-4.8); LYMPHOCYTES % (AUTO) 14.4 % (20.5-51.5); MEAN CORPUSCULAR HEMOGLOBIN 34.3 uug (23.8-33.4); MEAN CORPUSCULAR HGB CONC 34 g/dL (32.5-36.3); MEAN CORPUSCULAR VOLUME 100.4 fL (73.0-96.2); MONOCYTES # (AUTO) 0.4 K/uL (0.1-1.30); MONOCYTES % (AUTO) 3.8 % (0.0-11.0); NEUTROPHILS # (AUTO) 8.7 K/uL (1.8-8.9); RED BLOOD CELL COUNT(AUTO) 2.88 MIL/uL (4.06-5.63); RED CELL DISTRIBUTION WIDTH 17.6 % (12.1-16.2); WHITE BLOOD COUNT (AUTO) 10.8 K/uL (3.6-10.2)
[2024-05-05 08:39] LABS: DIFFERENTIAL COMMENT 1; PLATELET COUNT (AUTO) 1208 K/uL (152-348)
[2024-05-05 08:43] LABS: CARBON DIOXIDE 34 mmol/L (21-32); CHLORIDE 98 mmol/L (98-107); POTASSIUM 4.3 mmol/L (3.5-5.1); SODIUM SERUM 138 mmol/L (136-145)
[2024-05-05 08:44] LABS: CALCIUM 8.5 mg/dL (8.5-10.1); CREATININE 0.6 mg/dL (0.6-1.3); GLUCOSE 113 mg/dL (74-106); MAGNESIUM 2.1 mg/dL (1.8-2.4); UREA NITROGEN, BLOOD 19 mg/dL (7-18)
[2024-05-05] MEDS: ASPIRIN 81 MG TAB.CHEW GT SCH (09:32)
[2024-05-05 12:06] LABS: LYMPHOCYTES % (MANUAL) 14 % (20-40); MONOCYTES % (MANUAL) 4 % (2-10); NEUTROPHILS % (MANUAL) 80 % (42-75)
[2024-05-05 12:07] LABS: ANISOCYTOSIS 1+; EOSINOPHILS % (MANUAL) 2 % (0-8); PLATELET ESTIMATE MARKED INCREASED
[2024-05-05] MEDS ORDERED: INSULIN GLARGINE,HUM 300 UNITS/3 ML CARTRIDGE SQ ONE (21:45)
[2024-05-06] VITALS (15 sets, daily range): BP systolic 113–127; BP diastolic 56–62; TEMP 97.7–99.2; O2SAT 97–100
[2024-05-06 07:38] LABS: BASOPHILS # (AUTO) 0.1 K/UL (0.0-0.2); BASOPHILS % (AUTO) 0.6 % (0.0-2.0); DIFFERENTIAL COMMENT 0; EOSINOPHILS % (AUTO) 0.2 % (0.0-7.0); HEMATOCRIT 29.9 % (36.7-47.1); LYMPHOCYTES % (AUTO) 10.8 % (20.5-51.5); MEAN CORPUSCULAR HEMOGLOBIN 34.2 uug (23.8-33.4); MEAN CORPUSCULAR HGB CONC 33 g/dL (32.5-36.3); MEAN CORPUSCULAR VOLUME 102.3 fL (73.0-96.2); MONOCYTES # (AUTO) 0.2 K/uL (0.1-1.30); MONOCYTES % (AUTO) 2.7 % (0.0-11.0); NEUTROPHILS # (AUTO) 7.5 K/uL (1.8-8.9); NEUTROPHILS % (AUTO) 85.7 % (38.5-71.5); RED BLOOD CELL COUNT(AUTO) 2.92 MIL/uL (4.06-5.63); RED CELL DISTRIBUTION WIDTH 17.3 % (12.1-16.2); WHITE BLOOD COUNT (AUTO) 8.8 K/uL (3.6-10.2)
[2024-05-06 07:45] LABS: PLATELET COUNT (AUTO) 1037 K/uL (152-348)
[2024-05-06 09:05] LABS: URIC ACID 1.8 mg/dL (3.5-7.2)
[2024-05-06 10:45] LABS: LYMPHOCYTES % (MANUAL) 11 % (20-40); MONOCYTES % (MANUAL) 3 % (2-10); NEUTROPHILS % (MANUAL) 86 % (42-75)
[2024-05-06 10:46] LABS: ANISOCYTOSIS 1+; HYPOCHROMASIA 1+; PLATELET ESTIMATE MARKED INCREASED
[2024-05-07] VITALS (13 sets, daily range): BP systolic 96–132; BP diastolic 48–67; TEMP 97.4–98.8; O2SAT 97–100
[2024-05-07] MEDS ORDERED: SODIUM HYPOCHLORITE 0.125% (QUARTER STRENGTH) 473 ML BOTTLE TP PRN (04:45)
[2024-05-07] MEDS ORDERED: MEDIHONEY= THERAHONEY 1.5 OZ TUBE TOP PRN (04:45)
[2024-05-07 11:33] LABS: BASOPHILS # (AUTO) 0.1 K/UL (0.0-0.2); DIFFERENTIAL COMMENT 0; EOSINOPHILS % (AUTO) 0.1 % (0.0-7.0); HEMATOCRIT 28.2 % (36.7-47.1); HEMOGLOBIN 9.7 g/dL (12.5-16.3); LYMPHOCYTES # (AUTO) 0.4 K/uL (0.8-4.8); LYMPHOCYTES % (AUTO) 8.5 % (20.5-51.5); MEAN CORPUSCULAR HEMOGLOBIN 33.8 uug (23.8-33.4); MEAN CORPUSCULAR HGB CONC 35 g/dL (32.5-36.3); MONOCYTES # (AUTO) 0.1 K/uL (0.1-1.30); MONOCYTES % (AUTO) 2.7 % (0.0-11.0); NEUTROPHILS # (AUTO) 4.6 K/uL (1.8-8.9); NEUTROPHILS % (AUTO) 87.7 % (38.5-71.5); PLATELET COUNT (AUTO) 994 K/uL (152-348); RED BLOOD CELL COUNT(AUTO) 2.87 MIL/uL (4.06-5.63); RED CELL DISTRIBUTION WIDTH 17.2 % (12.1-16.2); WHITE BLOOD COUNT (AUTO) 5.3 K/uL (3.6-10.2)
[2024-05-08] VITALS (14 sets, daily range): BP systolic 103–130; BP diastolic 51–55; TEMP 97.6–98.6; O2SAT 95–100
[2024-05-08 07:03] LABS: BASOPHILS % (AUTO) 0.9 % (0.0-2.0); EOSINOPHILS % (AUTO) 0.7 % (0.0-7.0); HEMATOCRIT 24.2 % (36.7-47.1); HEMOGLOBIN 8.6 g/dL (12.5-16.3); LYMPHOCYTES # (AUTO) 0.4 K/uL (0.8-4.8); LYMPHOCYTES % (AUTO) 11.4 % (20.5-51.5); MEAN CORPUSCULAR HEMOGLOBIN 34.7 uug (23.8-33.4); MEAN CORPUSCULAR HGB CONC 36 g/dL (32.5-36.3); MEAN CORPUSCULAR VOLUME 97.2 fL (73.0-96.2); MONOCYTES % (AUTO) 1.1 % (0.0-11.0); NEUTROPHILS # (AUTO) 3.3 K/uL (1.8-8.9); NEUTROPHILS % (AUTO) 85.9 % (38.5-71.5); PLATELET COUNT (AUTO) 990 K/uL (152-348); RED CELL DISTRIBUTION WIDTH 17.1 % (12.1-16.2); WHITE BLOOD COUNT (AUTO) 3.8 K/uL (3.6-10.2)
[2024-05-08 07:23] LABS: DIFFERENTIAL COMMENT 1; RED BLOOD CELL COUNT(AUTO) 2.49 MIL/uL (4.06-5.63)
[2024-05-08 07:29] LABS: CALCIUM 8.3 mg/dL (8.5-10.1); CARBON DIOXIDE 33 mmol/L (21-32); CHLORIDE 95 mmol/L (98-107); CREATININE 0.6 mg/dL (0.6-1.3); GLUCOSE 212 mg/dL (74-106); PHOSPHOROUS 3.7 mg/dL (2.5-4.9); SODIUM SERUM 133 mmol/L (136-145); UREA NITROGEN, BLOOD 28 mg/dL (7-18)
[2024-05-08] MEDS: MIRALAX 17 GM POWD.PACK GT PRN (09:23)
[2024-05-08] MEDS: HYDROXYUREA 500 MG CAPSULE PO SCH (21:10)
[2024-05-09] VITALS (8 sets, daily range): BP systolic 119–143; BP diastolic 57–63; TEMP 97.9–98.6; O2SAT 95–99
[2024-05-09 06:41] LABS: BASOPHILS % (AUTO) 0.8 % (0.0-2.0); EOSINOPHILS % (AUTO) 0.6 % (0.0-7.0); HEMATOCRIT 23.3 % (36.7-47.1); HEMOGLOBIN 8.6 g/dL (12.5-16.3); LYMPHOCYTES # (AUTO) 0.5 K/uL (0.8-4.8); LYMPHOCYTES % (AUTO) 13.4 % (20.5-51.5); MEAN CORPUSCULAR HEMOGLOBIN 35.7 uug (23.8-33.4); MEAN CORPUSCULAR HGB CONC 37 g/dL (32.5-36.3); MEAN CORPUSCULAR VOLUME 96.8 fL (73.0-96.2); MONOCYTES % (AUTO) 0.4 % (0.0-11.0); NEUTROPHILS # (AUTO) 3.2 K/uL (1.8-8.9); NEUTROPHILS % (AUTO) 84.8 % (38.5-71.5); PLATELET COUNT (AUTO) 818 K/uL (152-348); RED CELL DISTRIBUTION WIDTH 17.3 % (12.1-16.2); WHITE BLOOD COUNT (AUTO) 3.8 K/uL (3.6-10.2)
[2024-05-09 06:44] LABS: DIFFERENTIAL COMMENT 1; RED BLOOD CELL COUNT(AUTO) 2.41 MIL/uL (4.06-5.63)
[2024-05-09 06:50] LABS: CALCIUM 8.3 mg/dL (8.5-10.1); CARBON DIOXIDE 35 mmol/L (21-32); CHLORIDE 93 mmol/L (98-107); CREATININE 0.6 mg/dL (0.6-1.3); GLUCOSE 240 mg/dL (74-106); POTASSIUM 4.3 mmol/L (3.5-5.1); SODIUM SERUM 129 mmol/L (136-145); UREA NITROGEN, BLOOD 28 mg/dL (7-18)
[2024-05-09] MEDS ORDERED: HYDR500C PO (09:57)
[2024-05-09] MEDS ORDERED: LEVO75TA7 GT (09:57)
[2024-05-09] MEDS ORDERED: HYDROXYUREA 500 MG CAPSULE PO SCH (22:00)
== END 2024-05-09 18:50 | DRG 853 ==
LOC: ER 15:21 → TELE3 19:12 → MEDSURG3 04-22 10:40 → MEDSURG1 05-04 15:43 → MEDSURG3 05-07 07:51
PROVIDERS: ADMIT Nurse Practitioner Acute Care; ATTEND Nurse Practitioner Acute Care
PROC: 0KBP0ZZ Excision of Left Hip Muscle, Open Approach (ICD-10-PCS; principal; 2024-04-21)
PROC: 0KBN0ZZ Excision of Right Hip Muscle, Open Approach (ICD-10-PCS; 2024-04-21)
PROC: 05HC33Z Insertion of Infusion Device into Left Basilic Vein, Percutaneous Approach (ICD-10-PCS; 2024-04-22)
PROC: 30233N1 Transfusion of Nonautologous Red Blood Cells into Peripheral Vein, Percutaneous Approach (ICD-10-PCS; 2024-05-02)
PROC: 0QB10ZZ Excision of Sacrum, Open Approach (ICD-10-PCS; 2024-05-03)
DX: A41.9 Sepsis, unspecified organism (principal); G93.41 Metabolic encephalopathy; L89.154 Pressure ulcer of sacral region, stage 4; J69.0 Pneumonitis due to inhalation of food and vomit; J15.9 Unspecified bacterial pneumonia; I21.A1 Myocardial infarction type 2; N17.0 Acute kidney failure with tubular necrosis; J96.21 Acute and chronic respiratory failure with hypoxia; E87.20 Acidosis, unspecified; E87.0 Hyperosmolality and hypernatremia; I69.354 Hemiplegia and hemiparesis following cerebral infarction affecting left non-dominant side; C92.10 Chronic myeloid leukemia, BCR/ABL-positive, not having achieved remission; D68.59 Other primary thrombophilia; J44.0 Chronic obstructive pulmonary disease with (acute) lower respiratory infection; D47.1 Chronic myeloproliferative disease; E87.1 Hypo-osmolality and hyponatremia; R65.20 Severe sepsis without septic shock; E88.09 Other disorders of plasma-protein metabolism, not elsewhere classified; L89.611 Pressure ulcer of right heel, stage 1; I69.391 Dysphagia following cerebral infarction; R13.10 Dysphagia, unspecified; B35.1 Tinea unguium; Z79.64 Long term (current) use of myelosuppressive agent; E04.2 Nontoxic multinodular goiter; Z74.09 Other reduced mobility; E11.65 Type 2 diabetes mellitus with hyperglycemia; Z85.828 Personal history of other malignant neoplasm of skin; E86.0 Dehydration; Z93.1 Gastrostomy status; Z87.820 Personal history of traumatic brain injury; G40.909 Epilepsy, unspecified, not intractable, without status epilepticus; D75.839 Thrombocytosis, unspecified; D63.8 Anemia in other chronic diseases classified elsewhere; E03.9 Hypothyroidism, unspecified; I25.10 Atherosclerotic heart disease of native coronary artery without angina pectoris; I77.810 Thoracic aortic ectasia; I11.0 Hypertensive heart disease with heart failure; I50.9 Heart failure, unspecified; F03.90 Unspecified dementia, unspecified severity, without behavioral disturbance, psychotic disturbance, mood disturbance, and anxiety; F29 Unspecified psychosis not due to a substance or known physiological condition; H91.93 Unspecified hearing loss, bilateral; Z22.322 Carrier or suspected carrier of Methicillin resistant Staphylococcus aureus; Z79.4 Long term (current) use of insulin; Z98.42 Cataract extraction status, left eye; Z98.41 Cataract extraction status, right eye
CPT/HCPCS: 36415; 36600; 70030-TC; 71045; 71250; 73650; 82378; 82746; 82784; 82803; 83550; 83605; 83615; 83735; 84100; 84155; 84165; 84443; 84484; 84550; 85018; 85025; 85651; 86140; 86334; 86704; 86803; 86850; 86900; 86901; 86920; 87040; 87340; 87806; 88185; 94640; 94760; 99082-TC; A4606; A4663; A6209; A6213; G0378; J0278; J0692; J0696; J1200; J1815; J3370; J3480; J3490; J3590; J7040; J7050; J7060; P9016